=== PATIENT | female | born 1955 | race Caucasian/White ===

== ENCOUNTER 2017-01-11 17:54 | Emergency (ER) | payer SELFPAY ==
[~2017-01-11] VITALS: Ht 167.6 cm; Wt 84.3 kg
[2017-01-11 19:59] LABS: HEMATOCRIT 40.4 % (36.0-46.0); MCH 28.4 PG (29.0-34.0); MCHC 32.9 G/DL (30.0-36.0); MCV 86.1 FL (83-99); MEAN PLAT.VOLUME 8.8 uM^3 (9.5-12.4); PLATELET COUNT 399 K/uL (156-360); RBC DIS.WIDTH-CV 13.4 % (11.8-14.6); RBC DIS.WIDTH-SD 42.3 % (39-53); RED BLOOD COUNT 4.69 M/uL (3.80-5.20); WHITE BLOOD COUNT 8.8 K/uL (4.1-10.2)
[2017-01-11 20:11] LABS: CHLORIDE 107 mEq/L (99-109); POTASSIUM 4.5 mEq/L (3.7-5.4); SODIUM 139 mEq/L (136-147)
[2017-01-11 20:13] LABS: GLUCOSE 139 mg/dL (70-99)
[2017-01-11 20:14] LABS: ANION GAP 7 MEQ/L (2-14)
[2017-01-11 20:17] LABS: GFR ESTIMATE (CALCULATED) > 59 mL/min/; UREA NITROGEN (BUN) 9 mg/dL (9-23)
[2017-01-11] MEDS ORDERED: LEVAQUIN750 MG PO (20:39)
[2017-01-11] MEDS ORDERED: VENTOLIN HFA18 GM IH (20:39)
[2017-01-11] MEDS ORDERED: PREDNISONE20 MG PO (20:39)
[2017-01-11 20:47] VITALS: BP 176/82
== END 2017-01-11 20:49 | disposition home or self-care (01) ==
LOC: EME 17:54
PROVIDERS: Physician Assistant
DX: J18.9 Pneumonia, unspecified organism (principal); F17.200 Nicotine dependence, unspecified, uncomplicated; E78.5 Hyperlipidemia, unspecified; I10 Essential (primary) hypertension; E11.9 Type 2 diabetes mellitus without complications; T46.5X6A Underdosing of other antihypertensive drugs, initial encounter; T38.3X6A Underdosing of insulin and oral hypoglycemic [antidiabetic] drugs, initial encounter; Z91.128 Patient's intentional underdosing of medication regimen for other reason
CPT/HCPCS: 71020; 80048; 85027; 94640; 99281; 99284; J7512

== ENCOUNTER 2017-02-11 07:54 | Inpatient (IN) | payer OTHER ==
[~2017-02-11] VITALS: Ht 162.6 cm; Wt 85.0 kg
[~2017-02-11 07:54] MED LIST: LEVAQUIN750 MG PO; PREDNISONE20 MG PO; VENTOLIN HFA18 GM IH
[2017-02-11 08:36] LABS: HEMATOCRIT 41.3 % (36.0-46.0); MCH 27.2 PG (29.0-34.0); MEAN PLAT.VOLUME 8.7 uM^3 (9.5-12.4); PLATELET COUNT 496 K/uL (156-360); RBC DIS.WIDTH-CV 13.6 % (11.8-14.6); RBC DIS.WIDTH-SD 42.4 % (39-53); RED BLOOD COUNT 4.86 M/uL (3.80-5.20); WHITE BLOOD COUNT 8.2 K/uL (4.1-10.2)
[2017-02-11 08:37] LABS: BASE EXCESS 2.5 mEq/L (-3 to +3); BICARBONATE 27.9 mEq/L (22-26); CARBOXY HGB 3.6 % (0-5); PCO2 45 mm Hg (35-45); PO2 63 mm Hg (80-100)
[2017-02-11 08:38] LABS: COMMENTS - BLOOD GASES NAC+; DEVICE CANNULA; O2 FLOW 2 L/MIN; SITE RR
[2017-02-11 08:45] LABS: CHLORIDE 103 mEq/L (99-109); POTASSIUM 4.4 mEq/L (3.7-5.4)
[2017-02-11 08:46] LABS: SODIUM 137 mEq/L (136-147)
[2017-02-11 08:48] LABS: GLUCOSE 138 mg/dL (70-99)
[2017-02-11 08:49] LABS: ANION GAP 8 MEQ/L (2-14)
[2017-02-11 08:50] LABS: TOTAL BILIRUBIN 0.5 mg/dL (0.0-1.0)
[2017-02-11 08:51] LABS: ALKALINE PHOSPHATASE 66 IU/L (3-129)
[2017-02-11 08:52] LABS: GFR ESTIMATE (CALCULATED) > 59 mL/min/
[2017-02-11 08:53] LABS: UREA NITROGEN (BUN) 9 mg/dL (9-23)
[2017-02-11] MEDS ORDERED: CEFTIN500 MG PO (12:19)
[2017-02-11] MEDS ORDERED: DIFLUCAN150 MG PO (12:20)
[2017-02-11] MEDS ORDERED: PHENERGAN-CODE120 ML PO (12:20)
[2017-02-11] MEDS ORDERED: ZITHROMAX250 MG PO (12:23)
[2017-02-11 13:00] VITALS: BP 128/85
[2017-02-11 16:59] VITALS: BP 151/84
[2017-02-11 19:30] VITALS: BP 119/73
[2017-02-11 23:34] VITALS: BP 145/78
[2017-02-12 03:58] VITALS: BP 136/75
[2017-02-12 07:13] LABS: HEMATOCRIT 38.3 % (36.0-46.0); MCH 27.5 PG (29.0-34.0); MCHC 31.9 G/DL (30.0-36.0); MCV 86.3 FL (83-99); MEAN PLAT.VOLUME 8.8 uM^3 (9.5-12.4); PLATELET COUNT 386 K/uL (156-360); RBC DIS.WIDTH-CV 13.8 % (11.8-14.6); RBC DIS.WIDTH-SD 43.4 % (39-53); RED BLOOD COUNT 4.44 M/uL (3.80-5.20); WHITE BLOOD COUNT 6.7 K/uL (4.1-10.2)
[2017-02-12 07:27] LABS: PROTHROMBIN TIME 10.6 (9.2-11.2); PTT 31.4 (25-32)
[2017-02-12 07:38] LABS: ALKALINE PHOSPHATASE 59 IU/L (3-129); ANION GAP 7 MEQ/L (2-14); CHLORIDE 104 MEQ/L (99-109); GFR ESTIMATE (CALCULATED) > 59 mL/min/; GLUCOSE 150 mg/dL (70-99); POTASSIUM 4.1 MEQ/L (3.7-5.4); SAMPLE HEMOLYSIS CHECK 0; SAMPLE ICTERIC CHECK 0; SAMPLE LIPEMIA CHECK 0; SODIUM 138 MEQ/L (136-147); TOTAL BILIRUBIN 0.4 MG/DL (0.0-1.0); UREA NITROGEN (BUN) 7 mg/dL (9-23)
[2017-02-12 08:31] VITALS: BP 121/76
[2017-02-12 09:29] LABS: INTERNAL CONTROL VALID? YES
[2017-02-12 12:13] VITALS: BP 131/82
[2017-02-12 20:12] VITALS: BP 182/87
[2017-02-13 00:03] VITALS: BP 150/82
[2017-02-13 04:12] VITALS: BP 142/81
[2017-02-13 08:37] VITALS: BP 142/97
== END 2017-02-13 09:56 | disposition short-term general hospital (02) | DRG 190 ==
LOC: EME 07:54 → 5SOUTH 11:21 → EDOF 11:21 → 5SOUTH 13:00
PROVIDERS: Hospitalist; Nurse Practitioner Family
DX: J44.0 Chronic obstructive pulmonary disease with (acute) lower respiratory infection (principal); J18.9 Pneumonia, unspecified organism; I10 Essential (primary) hypertension; E78.5 Hyperlipidemia, unspecified; F17.210 Nicotine dependence, cigarettes, uncomplicated; E11.9 Type 2 diabetes mellitus without complications; F17.200 Nicotine dependence, unspecified, uncomplicated; I31.4 Cardiac tamponade; J90 Pleural effusion, not elsewhere classified; D18.09 Hemangioma of other sites; R63.4 Abnormal weight loss; R73.03 Prediabetes; R09.02 Hypoxemia; J44.1 Chronic obstructive pulmonary disease with (acute) exacerbation; R91.8 Other nonspecific abnormal finding of lung field; Z87.01 Personal history of pneumonia (recurrent); Z68.32 Body mass index [BMI] 32.0-32.9, adult
CPT/HCPCS: 36600; 71260; 80053; 82803; 85027; 85610; 85730; 87040; 87070; 87205; 87449; 93005; 93306; 94640; 94640 76; 94799; 99202; 99281; 99284; J0461; J0696; J1644; J2543; J2550; J3370; J7030; J7040; J7050

== ENCOUNTER → 2017-03-15 | Outpatient (CLI) | payer OTHER ==
[~2017-03-15] VITALS: Ht 165.1 cm; Wt 70.2 kg
[~2017-03-15] MED LIST changes: +ACETAMINOPHEN500 M9 PO; +CEFTIN500 MG PO; +DIFLUCAN150 MG PO; +HYOSCYAMINE0.125 M1 SL; +PHENERGAN-CODE120 ML PO; +SPIRIVA1 INHALATI IH; +ZITHROMAX250 MG PO
[2017-03-17 12:13] LABS: Flow Clinical Information NOT PROVIDED (()); Flow Number of Markers 22 (()); Flow Spec Viability 75 % (()); Flow Specimen Type LYMPH NODE (())
== END | disposition home or self-care (01) ==
LOC: OPR 09:06 → EDSTATUS 10:00 → OPR 10:00 → RAD 10:00
PROVIDERS: Internal Medicine Medical Oncology
PROC: 07BB3ZX Excision of Mesenteric Lymphatic, Percutaneous Approach, Diagnostic (ICD-10-PCS; principal; 2017-03-15)
DX: C77.2 Secondary and unspecified malignant neoplasm of intra-abdominal lymph nodes (principal); C34.90 Malignant neoplasm of unspecified part of unspecified bronchus or lung; F17.200 Nicotine dependence, unspecified, uncomplicated; I10 Essential (primary) hypertension; K58.9 Irritable bowel syndrome, unspecified; R73.09 Other abnormal glucose; J18.9 Pneumonia, unspecified organism; E78.00 Pure hypercholesterolemia, unspecified; Z87.898 Personal history of other specified conditions; Z80.0 Family history of malignant neoplasm of digestive organs; Z80.6 Family history of leukemia; Z80.1 Family history of malignant neoplasm of trachea, bronchus and lung; Z80.3 Family history of malignant neoplasm of breast
CPT/HCPCS: 71260; 74177; 77012; 88184 90; 88185 90; 88189 90; 88305; 88341 TC; 88342 TC; J3010

== ENCOUNTER 2017-08-02 08:48 | Emergency (ER) | payer OTHER ==
[~2017-08-02] VITALS: Ht 165.1 cm; Wt 72.3 kg
[~2017-08-02 08:48] MED LIST changes: +DEXAMETHASONE4 MG PO; +FOLIC ACID0.4 MG PO; +OXAYDO5 MG PO; +REGLAN10 MG PO; +TESSALON PERLE100 MG PO; +ZOFRAN4 MG PO; +ZUPLENZ8 MG PO
[2017-08-02] MEDS ORDERED: ATROVENT 00.5 MG/2.5 IH (12:39)
[2017-08-02] MEDS ORDERED: ZITHROMAX Z-PA250 MG PO (12:39)
[2017-08-02] MEDS ORDERED: NEBULIZER MC (12:39)
[2017-08-02] MEDS ORDERED: PROVENTIL,2.5 MG/3 M IH (12:39)
[2017-08-02] MEDS ORDERED: PREDNISONE20 MG PO (12:39)
[2017-08-02 14:54] VITALS: BP 135/88
== END 2017-08-02 14:57 | disposition home or self-care (01) ==
LOC: EME 08:48
DX: J44.0 Chronic obstructive pulmonary disease with (acute) lower respiratory infection (principal); J20.9 Acute bronchitis, unspecified; J44.1 Chronic obstructive pulmonary disease with (acute) exacerbation; C34.90 Malignant neoplasm of unspecified part of unspecified bronchus or lung; K21.9 Gastro-esophageal reflux disease without esophagitis; E11.9 Type 2 diabetes mellitus without complications; Z79.899 Other long term (current) drug therapy; Z87.891 Personal history of nicotine dependence
CPT/HCPCS: 71020; 94640; 99281; 99284; J7512

== ENCOUNTER 2018-02-06 16:36 | Inpatient (IN) | payer BC ==
[~2018-02-06] VITALS: Ht 165.1 cm; Wt 74.5 kg
[~2018-02-06 16:36] MED LIST changes: +ANTI-ITCH28 G1 TP; +ATARAX10 MG PO; +ATROVENT 00.5 MG/2.5 IH; +NEBULIZER MC; +PROVENTIL,2.5 MG/3 M IH; +ZITHROMAX Z-PA250 MG PO
[2018-02-06 17:25] LABS: HEMATOCRIT 38.6 % (36.0-46.0); HEMOGLOBIN 13.5 G/DL (11.9-15.5); MCH 29.7 PG (29.0-34.0); PLATELET COUNT 318 K/uL (156-360); RBC DIS.WIDTH-CV 13.3 % (11.8-14.6); RBC DIS.WIDTH-SD 41.3 % (39-53); RED BLOOD COUNT 4.54 M/uL (3.80-5.20); WHITE BLOOD COUNT 8.1 K/uL (4.1-10.2)
[2018-02-06 17:31] LABS: CARBON DIOXIDE (BICARBONATE) 26.8 MEQ/L (20-31)
[2018-02-06 17:42] LABS: CHLORIDE 100 mEq/L (99-109); POTASSIUM 3.9 mEq/L (3.7-5.4); SODIUM 137 mEq/L (136-147)
[2018-02-06 17:44] LABS: GLUCOSE 123 mg/dL (70-99)
[2018-02-06 17:48] LABS: CREATININE 0.7 mg/dL (0.6-1.3); GFR ESTIMATE (CALCULATED) > 59 mL/min/; UREA NITROGEN (BUN) 13 mg/dL (9-23)
[2018-02-06 17:55] LABS: TROP-I INTERPRETATION NEGATIVE; TROPONIN-I 0.01 ng/mL (0.0-0.30)
[2018-02-06] MEDS ORDERED: PROVENTIL,2.5 MG/3 M IH (19:29)
[2018-02-06] MEDS ORDERED: INCRUSE ELLI62.5 MCG IH (19:30)
[2018-02-06] MEDS ORDERED: TUMS500 MG PO (19:30)
[2018-02-06] MEDS ORDERED: COLACE100 MG PO (19:30)
[2018-02-07] VITALS (7 sets, daily range): BP systolic 102–131; BP diastolic 62–86
[2018-02-07 02:07] LABS: APPEARANCE CLOUDY ((CLEAR)); BILIRUBIN NEGATIVE; BLOOD SMALL; COLOR YELLOW ((YELLOW)); GLUCOSE (STRIP) NEGATIVE; KETONES 20; LEUKOCYTES LARGE; NITRITE NEGATIVE; PROTEIN (STRIP) 30; SPECIFIC GRAVITY 1.058 (1.000-1.030); UROBILINOGEN 0.2 MG/DL (0.2-1.0)
[2018-02-07 03:12] LABS: BACTERIA RARE /HPF; EPITHELIAL CELLS 3+ /HPF; MUCUS 1+ /LPF; RED BLOOD CELLS 20-30 /HPF (0-5); UCUL ADDED? YES; WHITE BLOOD CELLS TNTC /HPF (0-5)
[2018-02-07 06:14] LABS: BASOPHIL (%) 0.6 % (0-1); EOSINOPHIL (%) 1.1 % (0-5); EOSINOPHIL COUNT 0.1 K/uL (0-0.3); HEMATOCRIT 37.9 % (36.0-46.0); HEMOGLOBIN 12.5 G/DL (11.9-15.5); IMMATURE GRANULOCYTE (%) 0.6 % (0.0-0.7); LYMPHOCYTE (%) 20.4 % (15-42); LYMPHOCYTE COUNT 1.4 K/uL (1.0-2.8); MCH 28.1 PG (29.0-34.0); MCV 85.2 FL (83-99); MONOCYTE (%) 10.9 % (3-12); MONOCYTE COUNT 0.8 K/uL (0-0.8); NEUTROPHIL (%) 66.4 % (45-76); NEUTROPHIL COUNT 4.7 K/uL (1.8-6.4); PLATELET COUNT 316 K/uL (156-360); RBC DIS.WIDTH-CV 13.4 % (11.8-14.6); RBC DIS.WIDTH-SD 41.5 % (39-53); RED BLOOD COUNT 4.45 M/uL (3.80-5.20); WHITE BLOOD COUNT 7.1 K/uL (4.1-10.2)
[2018-02-07 06:33] LABS: CHLORIDE 102 MEQ/L (99-109); CREATININE 0.6 MG/DL (0.6-1.3); GFR ESTIMATE (CALCULATED) > 59 mL/min/; GLUCOSE 129 mg/dL (70-99); POTASSIUM 3.8 MEQ/L (3.7-5.4); SODIUM 137 MEQ/L (136-147); UREA NITROGEN (BUN) 15 mg/dL (9-23)
[2018-02-08 07:22] VITALS: BP 133/83
[2018-02-08 12:00] VITALS: BP 150/86
[2018-02-08 16:46] VITALS: BP 167/80
[2018-02-08 17:30] VITALS: BP 172/102
[2018-02-08 19:33] VITALS: BP 160/100; BP 175/106
[2018-02-08 23:31] VITALS: BP 127/79
[2018-02-09 03:02] VITALS: BP 132/83
[2018-02-09 09:09] VITALS: BP 117/69
[2018-02-09 12:19] VITALS: BP 125/77
[2018-02-09 16:42] VITALS: BP 113/72
[2018-02-09 19:11] VITALS: BP 116/71
[2018-02-09 22:45] VITALS: BP 128/85
[2018-02-10 04:13] VITALS: BP 119/61
[2018-02-10 07:30] VITALS: BP 131/84
[2018-02-10 11:17] VITALS: BP 130/85
[2018-02-10] MEDS ORDERED: MUCINEX600 MG PO (12:13)
[2018-02-10] MEDS ORDERED: FAMOTIDINE20 MG PO (12:16)
[2018-02-10] MEDS ORDERED: PREDNISONE20 MG PO (12:16)
[2018-02-10] MEDS ORDERED: OXYCODONE HCL5 MG PO (12:16)
[2018-02-10] MEDS ORDERED: LEVAQUIN750 MG PO (12:21)
== END 2018-02-10 14:23 | disposition home health service (06) | DRG 194 ==
LOC: EME 16:36 → EDOF 22:29 → 5EAST 22:29 → ENRESERV 22:30 → 5EAST 23:59
PROVIDERS: Emergency Medicine; Hospitalist
DX: J18.9 Pneumonia, unspecified organism (principal); J44.0 Chronic obstructive pulmonary disease with (acute) lower respiratory infection; J44.1 Chronic obstructive pulmonary disease with (acute) exacerbation; C79.89 Secondary malignant neoplasm of other specified sites; C34.91 Malignant neoplasm of unspecified part of right bronchus or lung; I31.3 Pericardial effusion (noninflammatory); J90 Pleural effusion, not elsewhere classified; I27.20 Pulmonary hypertension, unspecified; I10 Essential (primary) hypertension; R73.03 Prediabetes; F43.23 Adjustment disorder with mixed anxiety and depressed mood; R63.4 Abnormal weight loss; K58.9 Irritable bowel syndrome, unspecified; R26.2 Difficulty in walking, not elsewhere classified; F10.11 Alcohol abuse, in remission; Z92.21 Personal history of antineoplastic chemotherapy; Z87.891 Personal history of nicotine dependence
CPT/HCPCS: 71045; 71275; 80048; 81003; 82803; 82948; 83605; 83880; 84484; 85025; 85027; 87040; 87070; 87086; 87205; 87449; 87502; 93005; 93306; 94640; 94640 76; 99202; 99281; 99285; J0692; J0696; J1650; J2543; J7050; J7512

== ENCOUNTER 2018-03-24 11:42 | Inpatient (IN) | payer BC, OTHER ==
[~2018-03-24] VITALS: Ht 160 cm; Wt 70.3 kg
[~2018-03-24 11:42] MED LIST changes: +COLACE100 MG PO; +FAMOTIDINE20 MG PO; +INCRUSE ELLI62.5 MCG IH; +MUCINEX600 MG PO; +OXYCODONE HCL5 MG PO; +TUMS500 MG PO
[2018-03-24 13:08] LABS: BASOPHIL (%) 0.4 % (0-1); EOSINOPHIL (%) 0.8 % (0-5); HEMATOCRIT 30.5 % (36.0-46.0); HEMOGLOBIN 10.7 G/DL (11.9-15.5); IMMATURE GRANULOCYTE (%) 0.8 % (0.0-0.7); LYMPHOCYTE (%) 31.1 % (15-42); LYMPHOCYTE COUNT 0.8 K/uL (1.0-2.8); MCH 29.1 PG (29.0-34.0); MCHC 35.1 G/DL (30.0-36.0); MCV 82.9 FL (83-99); MONOCYTE COUNT 0.1 K/uL (0-0.8); NEUTROPHIL (%) 62.9 % (45-76); NEUTROPHIL COUNT 1.6 K/uL (1.8-6.4); PLATELET COUNT 181 K/uL (156-360); RBC DIS.WIDTH-CV 14.1 % (11.8-14.6); RED BLOOD COUNT 3.68 M/uL (3.80-5.20); WHITE BLOOD COUNT 2.5 K/uL (4.1-10.2)
[2018-03-24 13:14] LABS: CHLORIDE 103 mEq/L (99-109); POTASSIUM 3.5 mEq/L (3.7-5.4); SODIUM 142 mEq/L (136-147)
[2018-03-24 13:15] LABS: GLUCOSE 141 mg/dL (70-99)
[2018-03-24 13:19] LABS: CREATININE 0.7 mg/dL (0.6-1.3); GFR ESTIMATE (CALCULATED) > 59 mL/min/
[2018-03-24 13:20] LABS: UREA NITROGEN (BUN) 10 mg/dL (9-23)
[2018-03-24 13:33] LABS: INTER. NORMALIZED RATIO 1.1
[2018-03-24 13:36] LABS: PTT 26.4 SEC (25-37)
[2018-03-24 13:42] LABS: HDL CHOLESTEROL 28 MG/DL (Desirable>=50); LDL CHOLESTEROL 123 mg/dL (Desirable<100); NON-HDL CHOLESTEROL 156 mg/dL (Desirable<160); TOTAL CHOLESTEROL 184 mg/dL (Desirable<200); TRIGLYCERIDES 163 MG/DL (Normal: <150)
[2018-03-24 14:44] LABS: HEMOGLOBIN A1c (GLYCOHEMOGLOB) 7.1 % (Below 5.7)
[2018-03-24] MEDS ORDERED: PROCHLORPERAZIN10 MG PO (16:54)
[2018-03-24] MEDS ORDERED: ALBUTEROL2.5 MG/3 M IH (16:55)
[2018-03-24 17:06] LABS: TROP-I INTERPRETATION NEGATIVE; TROPONIN-I < 0.01 ng/mL (0.0-0.30)
[2018-03-24 17:16] LABS: THYROTROPIN (TSH) 2.2 MIU/L (0.4-5.5)
[2018-03-24 17:48] VITALS: BP 128/71
[2018-03-24 20:15] VITALS: BP 125/84
[2018-03-24 23:52] VITALS: BP 115/75
[2018-03-25 04:52] VITALS: BP 126/79
[2018-03-25 06:03] LABS: HEMATOCRIT 29.4 % (36.0-46.0); MCH 28.6 PG (29.0-34.0); PLATELET COUNT 173 K/uL (156-360); RBC DIS.WIDTH-CV 14.3 % (11.8-14.6); RBC DIS.WIDTH-SD 43.4 % (39-53)
[2018-03-25 06:09] LABS: WHITE BLOOD COUNT 1.9 K/uL (4.1-10.2)
[2018-03-25 06:17] LABS: CHLORIDE 105 MEQ/L (99-109); CREATININE 0.4 MG/DL (0.6-1.3); GFR ESTIMATE (CALCULATED) > 59 mL/min/; GLUCOSE 113 mg/dL (70-99); POTASSIUM 3.9 MEQ/L (3.7-5.4); SODIUM 140 MEQ/L (136-147); UREA NITROGEN (BUN) 6 mg/dL (9-23)
[2018-03-25 07:38] VITALS: BP 124/79
[2018-03-25 11:50] VITALS: BP 119/70
[2018-03-25] MEDS ORDERED: ATORVASTATIN CA40 MG PO (13:29)
[2018-03-25] MEDS ORDERED: ASPIR-LOW81 MG PO (13:29)
[2018-03-25 15:56] VITALS: BP 122/73
[2018-03-25 20:08] VITALS: BP 118/72
[2018-03-25 23:36] VITALS: BP 155/83
[2018-03-26 02:11] LABS: APPEARANCE CLEAR ((CLEAR)); BILIRUBIN NEGATIVE; BLOOD NEGATIVE; COLOR STRAW ((YELLOW)); GLUCOSE (STRIP) NEGATIVE; KETONES NEGATIVE; LEUKOCYTES MODERATE; NITRITE NEGATIVE; PROTEIN (STRIP) NEGATIVE; SPECIFIC GRAVITY 1.006 (1.000-1.030); UROBILINOGEN 0.2 MG/DL (0.2-1.0)
[2018-03-26 02:12] LABS: BACTERIA RARE /HPF; EPITHELIAL CELLS RARE /HPF; MUCUS TRACE /LPF; RED BLOOD CELLS 0-5 /HPF (0-5); UCUL ADDED? NO; WHITE BLOOD CELLS 0-5 /HPF (0-5)
[2018-03-26 04:40] VITALS: BP 135/71
[2018-03-26 06:08] LABS: BASOPHIL (%) 1.2 % (0-1); EOSINOPHIL (%) 1.2 % (0-5); HEMATOCRIT 30.3 % (36.0-46.0); HEMOGLOBIN 10.2 G/DL (11.9-15.5); IMMATURE GRANULOCYTE (%) 0.6 % (0.0-0.7); LYMPHOCYTE (%) 55.5 % (15-42); LYMPHOCYTE COUNT 0.9 K/uL (1.0-2.8); MCH 28.3 PG (29.0-34.0); MCHC 33.7 G/DL (30.0-36.0); MCV 84.2 FL (83-99); MONOCYTE (%) 6.7 % (3-12); MONOCYTE COUNT 0.1 K/uL (0-0.8); NEUTROPHIL (%) 34.8 % (45-76); NEUTROPHIL COUNT 0.6 K/uL (1.8-6.4); PLATELET COUNT 173 K/uL (156-360); RBC DIS.WIDTH-CV 14.2 % (11.8-14.6); RBC DIS.WIDTH-SD 42.9 % (39-53)
[2018-03-26 06:14] LABS: WHITE BLOOD COUNT 1.6 K/uL (4.1-10.2)
[2018-03-26 06:18] LABS: CHLORIDE 104 MEQ/L (99-109); CREATININE 0.5 MG/DL (0.6-1.3); GFR ESTIMATE (CALCULATED) > 59 mL/min/; GLUCOSE 124 mg/dL (70-99); SODIUM 142 MEQ/L (136-147); UREA NITROGEN (BUN) 6 mg/dL (9-23)
[2018-03-26 07:30] VITALS: BP 120/77
== END 2018-03-26 11:49 | disposition home or self-care (01) | DRG 69 ==
LOC: EME 11:42 → EDOF 13:54 → 5SOUTH 13:54 → ENRESERV 14:01 → 5SOUTH 17:19
PROVIDERS: Family Medicine; Internal Medicine
DX: G45.9 Transient cerebral ischemic attack, unspecified (principal); D61.810 Antineoplastic chemotherapy induced pancytopenia; R47.01 Aphasia; C34.91 Malignant neoplasm of unspecified part of right bronchus or lung; C79.51 Secondary malignant neoplasm of bone; J44.9 Chronic obstructive pulmonary disease, unspecified; I10 Essential (primary) hypertension; K21.9 Gastro-esophageal reflux disease without esophagitis; E78.5 Hyperlipidemia, unspecified; E11.9 Type 2 diabetes mellitus without complications; Z87.891 Personal history of nicotine dependence; Z79.82 Long term (current) use of aspirin; T45.1X5A Adverse effect of antineoplastic and immunosuppressive drugs, initial encounter; Z79.84 Long term (current) use of oral hypoglycemic drugs; Z80.0 Family history of malignant neoplasm of digestive organs; Z80.1 Family history of malignant neoplasm of trachea, bronchus and lung; Z80.6 Family history of leukemia; Z80.8 Family history of malignant neoplasm of other organs or systems
CPT/HCPCS: 70450; 70551; 80048; 80061; 81003; 83036; 84145 90; 84443; 84484; 85025; 85027; 85610; 85651; 85730; 86140; 87040; 93005; 93306; 93880; 94640; 94760; 94799; 99281; 99285; J1644; J2060; J3480